=== PATIENT | female | born 1995 | race Hispanic/Latino ===

== ENCOUNTER 2017-09-25 16:31 | Inpatient (IN) | payer MEDICAID, OTHER ==
[~2017-09-25] VITALS: Ht 157.5 cm; Wt 80.7 kg
[2017-09-25] MEDS ORDERED: LACTATED RINGERS 1000ML 1,000 ML IV PRN (16:36)
[2017-09-25] MEDS ORDERED: AMPICILLIN 2GM+NS 100ML 100 ML IV SCH (16:45)
[2017-09-25] MEDS: AMPICILLIN 1GM+NS 50ML 50 ML IV SCH ×2 (16:45→21:06)
[2017-09-25 17:27] LABS: HEMATOCRIT 31.8 % (36-48); MEAN CORPUSCULAR HEMOGLOBIN 27.4 pg (27.0-33.0); MEAN CORPUSCULAR HGB CONC 34.2 g/dL (32.0-36.0); MEAN CORPUSCULAR VOLUME 80.1 fL (79-99); NUCLEATED RED BLOOD CELLS 0.1 % (0.0-0.19); PLATELET COUNT (AUTO) 353 K/uL (130-400); RED BLOOD CELL COUNT(AUTO) 3.97 MIL/uL (4.00-5.50); RED CELL DISTRIBUTION WIDTH 15.4 % (11.0-15.5); WHITE BLOOD COUNT (AUTO) 13.4 K/uL (4.8-10.8)
[2017-09-25 17:32] LABS: APPEARANCE,URINE Clear (CLEAR); BILIRUBIN,URINE Negative (NEGATIVE); COLOR,URINE Yellow (YELLOW); GLUCOSE, URINE (UA) Negative (NEGATIVE); KETONES,URINE Negative (NEGATIVE); LEUKOCYTE ESTERASE ,URINE Trace (NEGATIVE); NITRATE,URINE Negative (NEGATIVE); OCCULT BLOOD,URINE Negative (NEGATIVE); PH,URINE 7.5 (5.0-8.0); PROTEIN,URINE Negative (NEGATIVE); UROBILINOGEN,URINE 0.2 mg/dL (0.2-1.0)
[2017-09-25 17:44] LABS: BACTERIA,URINE Rare /HPF (None Seen); RBC,URINE 0-1 /HPF (0-1); SQUAMOUS EPITHELIAL CELL,UR Rare /LPF (0-2); WBC,URINE 0-1 /HPF (0-1)
[2017-09-26] VITALS (11 sets, daily range): BP systolic 96–126; BP diastolic 50–70
[2017-09-26] MEDS ORDERED: OXYTOCIN 10 USP UNITS/ML ONE ×2 (00:13→14:25)
[2017-09-26] MEDS ORDERED: LACTATED RINGERS 1000ML 1,000 ML IV ONE (00:13)
[2017-09-26] MEDS: AMPICILLIN 1GM+NS 50ML 50 ML IV SCH ×6 (00:56→20:45)
[2017-09-26] MEDS ORDERED: BUTORPHANOL TARTRATE 2 MG/ML IVP ONE (01:15)
[2017-09-26] MEDS ORDERED: OXYTOCIN 10 USP UNITS/ML 20 UNIT in LACTATED RINGERS 1000ML 1,000 ML IV SCH ×2 (03:00→06:30)
[2017-09-26] MEDS ORDERED: PROMETHAZINE HCL 25 MG/ML 1ML AMPULE IM ONE (08:59)
[2017-09-26] MEDS ORDERED: MEPERIDINE-PF 50 MG/ML SYG IVP SCH (09:00)
[2017-09-26] MEDS ORDERED: PROMETHAZINE HCL 25 MG/ML 1ML AMPULE IM SCH (09:00)
[2017-09-26] MEDS ORDERED: MEPERIDINE-PF 50 MG/ML SYG ONE (09:00)
[2017-09-26] MEDS ORDERED: PNV1TABL17 PO (10:29)
[2017-09-26] MEDS ORDERED: LANOLIN 30GM OINTMENT TP PRN (12:45)
[2017-09-26] MEDS ORDERED: DIPH,PERTUSS(ACELL),TET VAC/PF 0.5 ML VIAL IM PRN (12:45)
[2017-09-26] MEDS ORDERED: ACETAMINOPHEN 325 MG TAB PO PRN (12:45)
[2017-09-26] MEDS ORDERED: BENZOCAINE/LANOLIN/ALOE VERA 60 ML AEROSOL TP PRN (12:45)
[2017-09-26] MEDS ORDERED: WITCH HAZEL 1 PAD TP PRN (12:45)
[2017-09-26] MEDS: IBUPROFEN 600 MG TABLET PO PRN (16:48)
[2017-09-26] MEDS: DOCUSATE SODIUM 100 MG CAP PO SCH (20:55)
[2017-09-27] MEDS: AMPICILLIN 1GM+NS 50ML 50 ML IV SCH ×4 (00:45→12:45)
[2017-09-27 03:24] VITALS: BP 102/61
[2017-09-27 05:40] LABS: HEMATOCRIT 30.1 % (36-48); MEAN CORPUSCULAR HEMOGLOBIN 26.4 pg (27.0-33.0); MEAN CORPUSCULAR HGB CONC 32.7 g/dL (32.0-36.0); MEAN CORPUSCULAR VOLUME 80.7 fL (79-99); PLATELET COUNT (AUTO) 340 K/uL (130-400); RED BLOOD CELL COUNT(AUTO) 3.73 MIL/uL (4.00-5.50); RED CELL DISTRIBUTION WIDTH 15.5 % (11.0-15.5); WHITE BLOOD COUNT (AUTO) 13.8 K/uL (4.8-10.8)
[2017-09-27] MEDS: IBUPROFEN 600 MG TABLET PO PRN (06:16)
[2017-09-27 07:30] LABS: HEPATITIS Bs ANTIGEN SCREEN P Negative (Negative)
[2017-09-27 07:35] VITALS: BP 105/53
[2017-09-27] MEDS: DOCUSATE SODIUM 100 MG CAP PO SCH (08:43)
[2017-09-27 11:23] VITALS: BP 108/61
== END 2017-09-27 13:55 | disposition home or self-care (01) | DRG 775 ==
LOC: LDH 16:31 → WSH 09-26 09:50
PROVIDERS: ADMIT Obstetrics & Gynecology; ATTEND Obstetrics & Gynecology
PROC: 10E0XZZ Delivery of Products of Conception, External Approach (ICD-10-PCS; principal; 2017-09-26)
PROC: 3E0234Z Introduction of Serum, Toxoid and Vaccine into Muscle, Percutaneous Approach (ICD-10-PCS; 2017-09-26)
PROC: 10907ZC Drainage of Amniotic Fluid, Therapeutic from Products of Conception, Via Natural or Artificial Opening (ICD-10-PCS; 2017-09-26)
PROC: 3E033VJ Introduction of Other Hormone into Peripheral Vein, Percutaneous Approach (ICD-10-PCS; 2017-09-26)
DX: O99.824 Streptococcus B carrier state complicating childbirth (principal); D62 Acute posthemorrhagic anemia; O90.81 Anemia of the puerperium; Z37.0 Single live birth; Z3A.38 38 weeks gestation of pregnancy; Z23 Encounter for immunization
CPT/HCPCS: 36415; 81001; 85027; 86592; 86701; 86850; 86900; 86901; 87340; 87390; 90715; A4351; J0290; J2175; J2550; J2590; J7120